=== PATIENT | female | born 1970 | race Caucasian/White ===

== ENCOUNTER 2017-10-31 14:17 | Inpatient (IN) | payer MEDICARE, OTHER ==
--- NOTE | 2017-10-31 14:24 | ED Physician Chart ---
ED Chief Complaint/HPI - Patient Information Date Seen:: 10/31/17 Time Seen:: 14:15 Chief Complaint:: aggressive behavior History of Present Illness:: [facility] patient has been exhibiting increased aggressiveness. She has been agitated and has been hitting the huitron. Historian:: Patient Review:: Transfer documents Reviewed ED Review of Systems - Review of Systems General/Constitutional: No fever, No chills, No weight loss, No weakness, No diaphoresis, No edema, No loss of appetite Skin: No skin lesions, No rash, No bruising Head: No headache, No light-headedness Eyes: No loss of vision, No pain, No diplopia ENT: No earache, No nasal drainage, No sore throat, No tinnitus Neck: No neck pain, No swelling, No thyromegaly, No stiffness, No mass noted Cardio Vascular: No chest pain, No palpitations, No PND, No orthopnea, No edema Pulmonary: No SOB, No cough, No sputum, No wheezing GI: No nausea, No vomiting, No diarrhea, No pain, No melena, No hematochezia, No constipation, No hematemesis G/U: No dysuria, No frequency, No hematuria Musculoskeletal: No bone or joint pain, No back pain, No muscle pain Endocrine: No polyuria, No polydipsia Psychiatric: No depression, No anxiety, No suicidal ideation Hematopoietic: No bruising, No lymphadenopathy Allergic/Immuno: No urticaria, No angioedema Neurological: No syncope, No focal symptoms, No weakness, No paresthesia, No headache, No seizure, No dizziness, No confusion, No vertigo ED Past Medical History - Past Medical History Past Medical History: HTN, Asthma/COPD, Other (amyotrophic lateral sclerosis; dysphagia; schizoaffective disorder, bipolar type; AU depression; nicotine dependence) Family History: Other (unavailable) Social History: Smoker, Care Facility Surgical History: other (unavailable) Psychiatricy History: Other (see above) Medication: Reviewed Family Medical History - Family Member Father History Unknown: Yes ED Physical Exam - Physical Examination General/Constitutional: Awake, Well-developed, well-nourished Other Gen/Cons comments:: Uncooperative for exam; yells at examiner Head: Atraumatic Eyes: Lids, conjuctiva normal, PERRL, EOMI Skin: Nl inspection, No rash, No skin lesions, No ecchymosis, Well hydrated, No lymphadenopathy ENMT: External ears, nose nl, Nasal exam nl, Lips, teeth, gums nl Neck: Nontender, Full ROM w/o pain, No JVD, No nuchal rigidity, No bruit, No mass, No stridor Respiratory: Nl effort/Exclusion, Clear to Auscultation, No Wheeze/Rhonchi/Rales Cardio Vascular: RRR, No murmur, gallop, rubs, NL S1 S2 GI: No tenderness/rebounding/guarding, No organomegaly, No hernia, Normal BS's, Nondistended, No mass/bruits, No McBurney tenderness : No CVA tenderness Extremities: No tenderness or effusion, Full ROM, normal strength in all extremities, No edema, Normal digits & nails Neuro/Psych: Alert/oriented, DTR's symmetric, Normal sensory exam, Normal motor strength, Judgement/insight normal, Mood normal, Normal gait, No focal deficits Misc: Normal back, No paraspinal tenderness ED Labs/Radiology/EKG Results - Lab Results Results: Laboratory Results - last 24 hr 10/31/17 10/31/17 14:30 14:30 WBC 14.3 H RBC 5.22 H Hgb 16.1 Hct 47.4 MCV 90.8 MCH 30.8 MCHC Differential 34.0 RDW 12.4 Plt Count 284 MPV 8.5 Neutrophils % 66.2 Lymphocytes % 23.2 Monocytes % 8.6 Eosinophils % 1.9 Basophils % 0.1 Sodium 137 Potassium 3.5 Chloride 98 Carbon Dioxide 30.4 Anion Gap 12.1 BUN 23 Creatinine 1.2 Est GFR ( Amer) > 60.0 Est GFR (Non-Af Amer) 50.7 BUN/Creatinine Ratio 19.2 Glucose 98 Calcium 9.9 Total Bilirubin 0.6 AST 21 ALT < 3 L Alkaline Phosphatase 58 Total Protein 7.0 Albumin 4.5 Globulin 2.5 Albumin/Globulin Ratio 1.8 Triglycerides 271 H Cholesterol 226 H LDL Cholesterol Direct 145 HDL Cholesterol 37 - Radiology Results Comments:: Chest x-ray shows a large left diaphragmatic hernia with bowel contents in the chest; no infiltrate; no cardiomegaly - EKG Interpretations Rate & Rhythm: normal sinus rhythm with a rate 82 Franc[place]: normal Comments:: Small Q waves in leads II, II, avF ED Assessment - Assessment General Assessment: Patient has a leukocytosis of 14,300 the etiology of which is uncertain. We are attempting now to get a urinalysis now. Chest x-ray does not show an infiltrate. Patient was given medical clearance to go to [facility]. ED Septic Shock - . Is Septic Shock (SBP<90, OR Lactate>4 mmol\L) present?: No ED Reassessment (Disposition) - Reassessment Reassessment Condition:: Unchanged - Diagnosis Diagnosis:: Aggressive behavior; COPD; amyotrophic lateral sclerosis; nicotine dependence - Patient Disposition Admitted to:: [facility] Admitting Medical Physician:: Aniceto Montalvo Admitting Psych Physician:: Clarissa Estrella Condition at Disposition:: Stable, Unchanged
[2017-10-31 14:38] LABS: % EOSINOPHILS 1.9 % (0.0-5.0); EOSINOPHILE ABSOLUTE 0.3 Th/cmm (0.1-0.4); HEMOGLOBIN 16.1 gm/dL (12-16); MEAN CORPUSCULAR HEMOGLOBIN 30.8 pg (27.0-31.0); MONOCYTE ABSOLUTE 1.2 Th/cmm (0.3-1.0); RED BLOOD COUNT 5.22 Mil/cmm (3.80-5.10)
[2017-10-31 14:41] LABS: % BASOPHILS 0.1 % (0.0-2.0); % LYMPHOCYTES 23.2 % (20.0-50.0); % MONOCYTES 8.6 % (2.0-10.0); % NEUTROPHILS 66.2 % (40.0-80.0); HEMATOCRIT 47.4 % (41.0-60); LYMPHOCYTE ABSOLUTE 3.3 Th/cmm (1.5-3.0); MEAN CELL VOLUME 90.8 fl (81-100); MEAN PLATELET VOLUME 8.5 fl; NEUTROPHILE ABSOLUTE 9.5 Th/cmm (1.8-8.0); PLATELET COUNT 284 Th/cmm (150-400); RED CELL DISTRIBUTION WIDTH 12.4 % (11.5-20.0); WHITE BLOOD COUNT 14.3 Th/cmm (4.8-10.8)
[2017-10-31 14:53] LABS: ALB/GLOB RATIO 1.8 (1.0-1.8); ALBUMIN 4.5 gm/dL (3.7-5.3); ALKALINE PHOSPHATASE 58 U/L (34-104); ANION GAP 12.1 (7.0-16.0); BILIRUBIN,TOTAL 0.6 mg/dL (0.3-1.0); BUN - UREA NITROGEN 23 mg/dL (7-25); CALCIUM SERUM 9.9 mg/dL (8.6-10.3); CARBON DIOXIDE 30.4 mEq/L (21.0-31.0); CHLORIDE 98 mEq/L (98-107); CHOLESTEROL 226 mg/dL (<200); CREATININE - SERUM 1.2 mg/dL (0.6-1.2); GFR AFRICAN-AMERICAN > 60.0 ml/min (>90); GFR NON AFRICAN-AMERICAN 50.7 ml/min; GLUCOSE 98 mg/dL (70-105); HDL -HIGH DENSITY LIPOPROTEIN 37 mg/dL (23-92); POTASSIUM SERUM 3.5 mEq/L (3.5-5.1); SGOT 21 U/L (13-39); SGPT/ALT < 3 U/L (7-52); SODIUM SERUM 137 mEq/L (136-145); TRIGLYCERIDES 271 mg/dL (<150)
[2017-10-31 15:47] LABS: URINE MICROSCOPIC INDICATED? YES; URINE SOURCE CLEAN C
[2017-10-31 15:48] LABS: URINE BILIRUBIN NEGATIVE (NEGATIVE); URINE BLOOD NEGATIVE (NEGATIVE); URINE GLUCOSE (UA) NEGATIVE (NEGATIVE); URINE KETONE NEGATIVE (NEGATIVE); URINE LEUKOCYTE ESTERASE TRACE (NEGATIVE); URINE NITRATE NEGATIVE (NEGATIVE); URINE PH 5.5 (4.6 - 8.0); URINE PROTEIN NEGATIVE (NEGATIVE); URINE UROBILINOGEN 0.2 E.U./dL (0.2 - 1.0)
[2017-10-31 15:58] LABS: URINE CLARITY CLEAR (CLEAR); URINE COLOR YELLOW
[2017-10-31 15:59] LABS: URINE BACTERIA NONE SEEN /hpf (NONE SEEN); URINE EPITHELIAL CELLS FEW /lpf (FEW); URINE RBC NONE SEEN /hpf (0-5)
[2017-10-31 16:44] VITALS: BP 117/66
[2017-10-31] MEDS ORDERED: Haloperidol Lactate 5 mg/mL 1mL Vial IM ONE (16:44)
[2017-10-31] MEDS ORDERED: Haloperidol Lactate 5 mg/mL 1mL Vial ONE (16:45)
[2017-10-31] MEDS ORDERED: Maalox 30 mL Cup PO PRN (17:04)
[2017-10-31] MEDS ORDERED: Magnesium Hydroxide (MOM) 30 mL UDC PO PRN (17:04)
[2017-10-31] MEDS ORDERED: VOLTAREN 1% TP PRN (18:01)
[2017-10-31] MEDS ORDERED: Fleet Enema 135 mL RC PRN (18:01)
[2017-10-31] MEDS ORDERED: Hydrocodone/APAP 10 mg/325 mg Tab PO PRN (18:01)
[2017-10-31 18:05] LABS: AMPHETAMINE URINE POSITIVE (NEGATIVE); BARBITURATES URINE NEGATIVE (NEGATIVE); METHAMPHETAMINES QUAL URINE POSITIVE (NEGATIVE); PHENCYCLIDINE (PCP) URINE NEGATIVE (NEGATIVE)
[2017-10-31 18:06] LABS: COCAINE METABOLITE QUAL URINE NEGATIVE (NEGATIVE); OPIATES (MORPHINE) QUAL. URINE POSITIVE (NEGATIVE); TRICYCLICS (TCA) QUAL. URINE POSITIVE (NEGATIVE)
[2017-10-31 18:07] LABS: BENZODIAZEPINES QUAL URINE POSITIVE (NEGATIVE); CANNABINOID THC POSITIVE (NEGATIVE); METHADONE URINE NEGATIVE (NEGATIVE)
[2017-10-31] MEDS ORDERED: LIDOCAINE 5% TP SCH (18:15)
[2017-11-01] MEDS: Levothyroxine 0.125 Mg Tab PO SCH (06:40)
--- NOTE | 2017-11-01 08:38 | Diagnostic Imaging Report ---
Portable chest x-ray Time: 1532 hours History: Evidence of breath elevated white count Allowing for portable technique the heart size is normal. No focal pulmonary parenchymal processes. No hilar or mediastinal abnormalities. There is evidence of significant elevation of left hemidiaphragm by air distended bowel loops of the colon. Clinical correlation recommended. Impression: No acute abnormalities. Elevation left hemidiaphragm, distended colon.
[2017-11-01] MEDS ORDERED: Non-Formulary Item 1 EA (Tiotropium Bromide [Spiriva] 18 MCG) INH SCH (09:00)
[2017-11-01] MEDS: Ipratropium Neb 0.5 mg/2.5 mL UD HHN SCH ×3 (09:30→16:47)
[2017-11-01] MEDS: Multivitamin Tab PO SCH (10:04)
[2017-11-01] MEDS ORDERED: Ipratropium Neb 0.5 mg/2.5 mL UD HHN PRN (16:50)
--- NOTE | 2017-11-01 22:32 | History & Physical ---
ADMIT DATE: 10/31/2017 REASON FOR ADMISSION: Psychiatric disorder. HISTORY OF PRESENT ILLNESS: This is a 47-year-old female with underlying history of multiple medical problems including hypertension, unspecified involuntary limb movement, chronic insomnia, COPD, chronic pain syndrome, mental health disorders was admitted to Geropsych Unit at [facility] for underlying psychiatric illness by Dr. Estrella. Dr. Estrella requested medical H and P on this patient. During my evaluation, the patient was very confused and sleepy, unable to communicate well. Most of the history was obtained through available medical records. PAST MEDICAL HISTORY: Hypertension, involuntary extremity movement, hypothyroidism, chronic pain syndrome. PAST SURGICAL HISTORY: No significant past surgeries reported. FAMILY HISTORY: Noncontributory. SOCIAL HISTORY: Positive for alcohol, tobacco, or street drug use. CURRENT MEDICATIONS: Per medication reconciliation and list reviewed. ALLERGIES: ALLERGIC TO PENICILLIN, FLAGYL, SULFISOXAZOLE, SULFONYLUREA. REVIEW OF SYSTEMS: Unobtainable, the patient's underlying severe confusion. PHYSICAL EXAMINATION: VITAL SIGNS: Temperature 97.4, pulse 85, respirations 18, blood pressure 149/79, on room air. GENERAL APPEARANCE: The patient does not seem in acute distress. HEART: S1, S2 normal. LUNGS: Clear to auscultation. ABDOMEN: Soft, nontender. EXTREMITIES: No edema. NEUROLOGIC: Difficult to obtain due to patient's underlying severe confusion. EXTREMITIES: No edema noted. AVAILABLE LABORATORY DATA: WBC 14.3, hemoglobin 16.1. Sodium 130, potassium 3.5, BUN 21.2, AST 20, ALT less than 3, triglyceride 271, cholesterol 226, LDL 145. TSH 0.02. Urine drug screen positive for opioids, tricyclics, methamphetamine, benzodiazepine, and cannabinoids. RPR negative. ASSESSMENT: 1. Hypertension. 2. Involuntary body movements, possible Parkinson's. 3. Hyperlipidemia. 4. Polysubstance dependency and drug abuse. 5. Hypothyroidism. 6. Mental disorder. PLAN: The patient was admitted to Geropsych Unit. Further psych management per psychiatrist. Continue with the patient's current medications. Monitor blood pressures and vitals. Fall precaution will be given. The patient with bronchodilator treatment as needed. Discussed the patient's condition and plan of care with nursing staff. Thank you, Dr. Estrella, for allowing us to participate in care of this patient. [facility]# [id number]
[2017-11-02] MEDS: Levothyroxine 0.125 Mg Tab PO SCH (07:03)
[2017-11-02] MEDS: Multivitamin Tab PO SCH (08:09)
[2017-11-02 18:07] LABS: A1C % 5.1 % (4.0-6.0)
--- NOTE | 2017-11-02 22:12 | Psychiatric Evaluation ---
DATE OF SERVICE: 11/02/2017 PSYCHIATRIC INITIAL EVALUATION AND MENTAL STATUS EXAM AGE: 47. SEX: Female. PHYSICIAN: Dr. Estrella. CHIEF COMPLAINT: Agitation and aggressive behavior. HISTORY OF PRESENT ILLNESS: The patient is a 47-year-old female with history of what seems to be schizoaffective disorder. The patient is living in [facility] and she has been exhibiting self behavior and increased agitation and aggression. The staff in the hospital was not able to handle her agitation and irritability and the patient was transferred to the hospital. The patient has been increasingly agitated and has been angry and in irritable mood. Also, has not been able to follow any directions. The patient also has been angry and answered questions in short answers and a lot of anger. Also, urine drug screen came back positive for methamphetamine, marijuana and benzodiazepine. PAST PSYCHIATRIC HISTORY: The patient has history of what seems to be schizoaffective disorder. The patient has been taking Seroquel, BuSpar and Celexa. PAST MEDICAL HISTORY: The patient had no major medical problems except she had some erosive and chronic obstructive pulmonary disease. SOCIAL HISTORY: The patient lives in [facility] and it seems that she moved there recently. Urine drug screen was positive for marijuana, methamphetamine, and benzodiazepine. She denies ____ drug screen as well. ALLERGIES: No known allergies. MENTAL STATUS EXAMINATION: The patient appears slightly older than her stated age. Disheveled. Irritable mood. Angry. ____. Thought processes are circumstantial with flight of ideas. The patient denies any auditory or visual hallucinations or delusions. The patient denied suicidal or homicidal ideations. The patient is alert and oriented to time, place, person, and situation. Intact immediate, recent and remote memories. Poor insight and poor judgment. ASSESSMENT: PRIMARY DIAGNOSES: Schizoaffective disorder, mixed type, with psychotic features. SECONDARY DIAGNOSIS: Methamphetamine use disorder. ____ use disorder. TREATMENT PLAN: Monitor patient's behavior and condition closely. Continue Seroquel, Celexa and BuSpar and we will adjust the dose. Also, monitor her behavior. ESTIMATED LENGTH OF STAY: 5-7. THE PATIENT'S STRENGTHS AND WEAKNESSES: The patient's strengths is not clear at this time. Weaknesses are her ineffective coping and her poor judgment and misuse of leisure time by using drugs. AFTER DISCHARGE PLAN: Outpatient treatment and followup will continue as an outpatient. CRITERIA FOR DISCHARGE: The patient will not be psychotic or agitated and stabilized psychotropic medications. Plan is to establish outpatient treatment plans including rehabilitation for her drug use. [facility]# [id number]
[2017-11-03] MEDS: Levothyroxine 0.125 Mg Tab PO SCH (06:45)
[2017-11-03] MEDS: Multivitamin Tab PO SCH (09:27)
--- NOTE | 2017-11-03 16:02 | General Progress Note ---
Subjective - Review of Systems Service Date: 11/03/17 Subjective: Patient seen and examined doing fine no new medical concern reported Objective - Results Result Diagrams: 10/31/17 14:30 10/31/17 14:30 Recent Labs: Laboratory Last Values WBC 14.3 Th/cmm (4.8-10.8) H 10/31/17 14:30 RBC 5.22 Mil/cmm (3.80-5.10) H 10/31/17 14:30 Hgb 16.1 gm/dL (12-16) 10/31/17 14:30 Hct 47.4 % (41.0-60) 10/31/17 14:30 MCV 90.8 fl (81-100) 10/31/17 14:30 MCH 30.8 pg (27.0-31.0) 10/31/17 14:30 MCHC Differential 34.0 pg (28.0-36.0) 10/31/17 14:30 RDW 12.4 % (11.5-20.0) 10/31/17 14:30 Plt Count 284 Th/cmm (150-400) 10/31/17 14:30 MPV 8.5 fl 10/31/17 14:30 Neutrophils % 66.2 % (40.0-80.0) 10/31/17 14:30 Lymphocytes % 23.2 % (20.0-50.0) 10/31/17 14:30 Monocytes % 8.6 % (2.0-10.0) 10/31/17 14:30 Eosinophils % 1.9 % (0.0-5.0) 10/31/17 14:30 Basophils % 0.1 % (0.0-2.0) 10/31/17 14:30 Sodium 137 mEq/L (136-145) 10/31/17 14:30 Potassium 3.5 mEq/L (3.5-5.1) 10/31/17 14:30 Chloride 98 mEq/L (98-107) 10/31/17 14:30 Carbon Dioxide 30.4 mEq/L (21.0-31.0) 10/31/17 14:30 Anion Gap 12.1 (7.0-16.0) 10/31/17 14:30 BUN 23 mg/dL (7-25) 10/31/17 14:30 Creatinine 1.2 mg/dL (0.6-1.2) 10/31/17 14:30 Est GFR ( Amer) > 60.0 ml/min (>90) 10/31/17 14:30 Est GFR (Non-Af Amer) 50.7 ml/min 10/31/17 14:30 BUN/Creatinine Ratio 19.2 10/31/17 14:30 Glucose 98 mg/dL (70-105) 10/31/17 14:30 Hemoglobin A1c % 5.1 % (4.0-6.0) 10/31/17 14:30 Calcium 9.9 mg/dL (8.6-10.3) 10/31/17 14:30 Total Bilirubin 0.6 mg/dL (0.3-1.0) 10/31/17 14:30 AST 21 U/L (13-39) 10/31/17 14:30 ALT < 3 U/L (7-52) L 10/31/17 14:30 Alkaline Phosphatase 58 U/L (34-104) 10/31/17 14:30 Total Protein 7.0 gm/dL (6.0-8.3) 10/31/17 14:30 Albumin 4.5 gm/dL (3.7-5.3) 10/31/17 14:30 Globulin 2.5 gm/dL 10/31/17 14:30 Albumin/Globulin Ratio 1.8 (1.0-1.8) 10/31/17 14:30 Triglycerides 271 mg/dL (<150) H 10/31/17 14:30 Cholesterol 226 mg/dL (<200) H 10/31/17 14:30 LDL Cholesterol Direct 145 mg/dL (75-193) 10/31/17 14:30 HDL Cholesterol 37 mg/dL (23-92) 10/31/17 14:30 TSH 0.02 uIU/ml (0.34-5.60) L 10/31/17 14:30 Urine Source CLEAN C 10/31/17 15:40 Urine Color YELLOW 10/31/17 15:40 Urine Clarity CLEAR (CLEAR) 10/31/17 15:40 Urine pH 5.5 (4.6 - 8.0) 10/31/17 15:40 Ur Specific [place] 1.015 (1.005-1.030) 10/31/17 15:40 Urine Protein NEGATIVE mg/dL (NEGATIVE) 10/31/17 15:40 Urine Glucose (UA) NEGATIVE mg/dL (NEGATIVE) 10/31/17 15:40 Urine Ketones NEGATIVE mg/dL (NEGATIVE) 10/31/17 15:40 Urine Blood NEGATIVE (NEGATIVE) 10/31/17 15:40 Urine Nitrate NEGATIVE (NEGATIVE) 10/31/17 15:40 Urine Bilirubin NEGATIVE (NEGATIVE) 10/31/17 15:40 Urine Urobilinogen 0.2 E.U./dL (0.2 - 1.0) 10/31/17 15:40 Ur Leukocyte Esterase TRACE (NEGATIVE) H 10/31/17 15:40 Urine RBC NONE SEEN /hpf (0-5) 10/31/17 15:40 Urine WBC 2-5 /hpf (0-5) 10/31/17 15:40 Ur Epithelial Cells FEW /lpf (FEW) 10/31/17 15:40 Urine Bacteria NONE SEEN /hpf (NONE SEEN) 10/31/17 15:40 Urine Opiates Screen POSITIVE (NEGATIVE) H 10/31/17 15:40 Urine Methadone Screen NEGATIVE (NEGATIVE) 10/31/17 15:40 Ur Barbiturates Screen NEGATIVE (NEGATIVE) 10/31/17 15:40 Ur Tricyclics Screen POSITIVE (NEGATIVE) H 10/31/17 15:40 Ur Phencyclidine Scrn NEGATIVE (NEGATIVE) 10/31/17 15:40 Amphetamines Screen POSITIVE (NEGATIVE) H 10/31/17 15:40 U Methamphetamines Scrn POSITIVE (NEGATIVE) H 10/31/17 15:40 U Benzodiazepines Scrn POSITIVE (NEGATIVE) H 10/31/17 15:40 U Cocaine Metab Screen NEGATIVE (NEGATIVE) 10/31/17 15:40 U Cannabinoids Screen POSITIVE (NEGATIVE) H 10/31/17 15:40 RPR NONREACTIVE (NONREACTIVE) 10/31/17 14:30 - Physical Exam Vitals and I&O: Vital Signs Temp 97.5 F 11/03/17 15:31 Pulse 81 11/03/17 15:31 Resp 15 11/03/17 15:31 BP 124/69 11/03/17 15:31 Pulse Ox 95 11/03/17 15:31 Intake & Output 11/02/17 11/03/17 11/03/17 18:59 06:59 18:59 Intake Total 900 Balance 900 Intake: Oral 900 Other: # Voids 4 # Bowel Movements 1 Active Medications: Current Medications Acetaminophen (Tylenol) 325 mg PO Q6HR PRN PRN Reason: PAIN OR TEMP >101 Stop: 12/30/17 18:00 Acetaminophen/Hydrocodone Bitart ([place] 10 Mg/325 Mg) 1 tab PO Q6H PRN PRN Reason: MODERATE PAIN (LEVEL 4-6) Stop: 12/30/17 18:00 Last Admin: 11/02/17 08:21 Dose: 1 tab Al Hydrox/Mg Hydrox/Simethicone (Maalox) 30 ml PO Q4HR PRN PRN Reason: GI DISTRESS Stop: 12/30/17 17:03 Ascorbic Acid (Vitamin C) 500 mg PO DAILY [facility] Stop: 12/31/17 08:59 Last Admin: 11/03/17 09:27 Dose: 500 mg Bisacodyl (Dulcolax 10 Mg Supp) 10 mg RC DAILY PRN PRN Reason: IF MOM INEFFECTIVE Stop: 12/30/17 18:00 Buspirone HCl (Buspar) 15 mg PO TID [facility] Stop: 12/31/17 08:59 Last Admin: 11/03/17 13:14 Dose: 15 mg Carbidopa/Levodopa (Sinemet 25mg-100 Mg) 1 tab PO BID [facility] Stop: 12/31/17 08:59 Last Admin: 11/03/17 09:27 Dose: 1 tab Citalopram Hydrobromide (Celexa) 40 mg PO DAILY [facility] Stop: 12/31/17 08:59 Last Admin: 11/03/17 09:27 Dose: 40 mg Docusate Sodium (Colace) 100 mg PO DAILY [facility] Stop: 12/31/17 08:59 Last Admin: 11/03/17 09:27 Dose: 100 mg Gabapentin (Neurontin) 800 mg PO BID [facility] Stop: 12/30/17 20:59 Last Admin: 11/03/17 09:27 Dose: 800 mg Ibuprofen (Motrin) 800 mg PO Q8HR [facility] Stop: 12/30/17 20:59 Last Admin: 11/03/17 13:14 Dose: 800 mg Ipratropium Prentice (Atrovent Neb 0.5mg/2.5ml) 0.5 mg HHN Q6HRT PRN PRN Reason: Shortness of Breath or Wheeze Stop: 11/11/17 16:49 Levothyroxine Sodium (Synthroid) 0.125 mg PO DAILY@0730 [facility] Stop: 12/31/17 07:29 Last Admin: 11/03/17 06:45 Dose: Not Given Lorazepam (Ativan) 0.5 mg PO Q4HR PRN; Protocol PRN Reason: Anxiety Stop: 11/30/17 17:03 Last Admin: 11/03/17 13:15 Dose: 0.5 mg Losartan Potassium (Cozaar) 25 mg PO DAILY [place] Stop: 12/31/17 08:59 Last Admin: 11/03/17 09:31 Dose: 25 mg Magnesium Hydroxide (Milk Of Magnesia) 30 ml PO HS PRN PRN Reason: Constipation Multivitamins/Vitamin C (Theragran) 1 tab PO DAILY [facility] Stop: 12/31/17 08:59 Last Admin: 11/03/17 09:27 Dose: 1 tab Mupirocin (Bactroban Oint) 1 appl NS BID [place] Stop: 11/07/17 09:01 Last Admin: 11/03/17 09:40 Dose: 1 appl Quetiapine Fumarate (Seroquel) 50 mg PO HS [place]; Protocol Stop: 01/01/18 20:59 Last Admin: 11/02/17 20:35 Dose: 50 mg Sodium Phosphate (Fleet Enema) 135 ml RC Q48H PRN PRN Reason: IF DULCOLAX INEFFECTIVE Stop: 12/30/17 18:00 Zolpidem Tartrate (Ambien) 5 mg PO HS PRN PRN Reason: Insomnia Stop: 12/30/17 17:03 Last Admin: 11/02/17 21:34 Dose: 5 mg Cardiovascular: Regular rate Lungs: Clear to auscultation Assessment/Plan - Problem List Patient Problems: All Active Problems INCREASED AGGRESSION AND DISRUPTION (Acute) - Assessment Assessment: HTN Hypothyroidism Hyperlipidemia Mental health disorder Drug abuse - Plan Plan: Monitor vitals Continue current medical management Psych management per DR RANDALL
--- NOTE | 2017-11-03 18:33 | Progress Notes ---
DATE: 11/03/2017 SUBJECTIVE: Chart reviewed and the patient interviewed. Also discussed the patient's condition with the staff and reviewed records and labs. The patient is still restless and is still in irritable mood. The patient also is still asking for more pain medications. Also, sleep is still poor and not sleeping well at night. Also, still has periods of agitation and irritability. Otherwise, the patient is compliant with taking medications with no side effect of medications. ASSESSMENT: The patient is still agitated and aggressive. TREATMENT PLAN: Continue to monitor her behavior and her condition closely. Also, continue Seroquel in a dose of 50 mg at bedtime. Continue to work on her anxiety and follow up. [facility]# [id number]
[2017-11-04] MEDS: Levothyroxine 0.125 Mg Tab PO SCH (06:38)
[2017-11-04] MEDS: Multivitamin Tab PO SCH (08:48)
--- NOTE | 2017-11-04 12:51 | Progress Notes ---
DATE: 11/04/2017 SUBJECTIVE: I met with the patient in the hospital. She has history of schizoaffective disorder, living in [facility] exhibiting self-destructive behaviors, increased agitation. The patient states she is here because "I asked for an intervention." States her friends are giving her methamphetamine and she needed to get away from that. Noted to be easily agitated, somewhat withdrawn. She is calmer this morning, somewhat pleasant, slept 9 hours last night. Staff noting she remains labile, unpredictable, restless, agitated, and still loud at times. ASSESSMENT: The patient remains symptomatic, fixated on discharge, telling an odd story about how friends gave her too much methamphetamine, ongoing concerns for safety. PLAN: We will try to increase collateral. Continue to monitor and follow up. Concerns for drug use. [facility]# [id number]
--- NOTE | 2017-11-04 14:54 | Progress Notes ---
DATE: 11/02/[address] Clarissa Estrella. SUBJECTIVE: The patient was interviewed. Case was discussed with staff, and chart reviewed. Per the staff, the patient has been labile, unpredictable on the unit. The patient was interviewed this morning at bedside. The patient was very irritable. The patient reported "I got my medicine late." The patient otherwise is unable to engage much more than that. She is unable to move past this. She seems to be very disorganized and unaware of what is going on. MENTAL STATUS EXAMINATION: The patient appears her stated age. She is lying in bed. She has fair eye contact, but she seems to be guarded overall. Speech is soft and minimal. Mood is depressed. Her affect is constricted. Her thought process appears to be loose at this time. Unable to assess suicidal or homicidal ideations, but she does seem to be internally preoccupied, also somewhat paranoid. She is alert and oriented to her name. Her insight, judgment and impulse control remain poor. ASSESSMENT: This is a 47-year-old female admitted to the [facility] Unit for acute psychosis. The patient at this time continues with gross thought disorganization. Also, continues to be somewhat labile on the unit depressed and also has been anxious and needs constant redirection. PLAN: We will continue the patient's acute hospitalization. We will continue medications as prescribed. We will encourage the patient to verbalize her needs. Encourage the patient to participate in group and milieu therapy. Encourage the patient to work with bilingual social worker and case management director for discharge planning and the need for community resources. [facility]# [id number] AMARI
== END 2017-11-04 20:06 | DRG 885 ==
LOC: ER 14:17 → GERO 15:45
PROVIDERS: ADMIT Psychiatry & Neurology Psychiatry; ATTEND Psychiatry & Neurology Psychiatry
DX: F25.0 Schizoaffective disorder, bipolar type (principal); G12.21 Amyotrophic lateral sclerosis; F19.20 Other psychoactive substance dependence, uncomplicated; I10 Essential (primary) hypertension; J44.9 Chronic obstructive pulmonary disease, unspecified; F17.210 Nicotine dependence, cigarettes, uncomplicated; F51.04 Psychophysiologic insomnia; G89.4 Chronic pain syndrome; E03.9 Hypothyroidism, unspecified; E78.5 Hyperlipidemia, unspecified; F15.90 Other stimulant use, unspecified, uncomplicated; Z88.0 Allergy status to penicillin; Z88.2 Allergy status to sulfonamides; Z88.8 Allergy status to other drugs, medicaments and biological substances
CPT/HCPCS: 36415-UA; 71045-TC; 80053-TC; 80061-TC; 80307; 81001-TC; 83036-90; 84443-TC; 85025-TC; 86592-TC; 93005; 94760; J1200; J1630; J2060; Z7610